=== PATIENT | male | born 1935 | race Caucasian/White ===

== ENCOUNTER 2018-04-26 09:54 | Emergency (ER) | payer MEDICARE, OTHER ==
[2018-04-26] MEDS ORDERED: Sodium Chloride 0.9% 2.5 ML Syringe FLUSH PRN (10:03)
[2018-04-26] MEDS ORDERED: Sodium Chloride 0.9% 10 ML Syringe FLUSH PRN (10:03)
[2018-04-26] MEDS ORDERED: Sodium Chloride 0.9% 1,000 ML IV ONE (10:35)
--- NOTE | 2018-04-26 11:32 | EDM.PDOC ---
ED HPI GENERAL MEDICAL PROBLEM - General Chief Complaint: Genitourinary Problem Stated Complaint: WEAKNESS Time Seen by Provider: 04/26/18 10:21 Source of Information: Reports: Patient History Limitations: Reports: No Limitations - History of Present Illness INITIAL COMMENTS - FREE TEXT/NARRATIVE: History of present illness: []Patient had 6 days of abdominal pain, rectal and urethral pain with urinary incontinence and vomiting. Patient states he was supposed to see Dr. Tomlin today but decided to come by ambulance to the ER for evaluation due to the severity of symptoms. Review of systems: As per history of present illness and below otherwise all systems reviewed and negative. Past medical history: As per history of present illness and as reviewed below otherwise noncontributory. Surgical history: As per history of present illness and as reviewed below otherwise noncontributory. Social history: No reported history of drug or alcohol abuse. Family history: As per history of present illness and as reviewed below otherwise noncontributory. Physical exam: General: Well developed, well nourished in NAD HEENT: Atraumatic, normocephalic, pupils reactive, negative for conjunctival pallor or scleral icterus, mucous membranes moist, throat clear, neck supple, nontender, trachea midline. Lungs: Clear to auscultation, breath sounds equal bilaterally, chest nontender. Heart: S1S2, regular, negative for clicks, rubs, or JVD. Abdomen: NABS, firm mass lower left abdomen, visibly distended and under to palpation.. Negative for masses or hepatosplenomegaly. Negative for costovertebral tenderness. Pelvis: Stable nontender. Genitourinary: Deferred. Rectal: Deferred. Extremities: Atraumatic, negative for cords or calf pain. Neurovascular unremarkable. Neuro: Awake, alert, oriented. Cranial nerves II through XII unremarkable. Cerebellum unremarkable. Motor and sensory unremarkable throughout. Exam nonfocal. Skin:warm and dry Diagnostics: CBC, chemistry, UA, CT abdomen pelvis showing urinary bladder outlet obstruction Therapeutics: De Leon catheter with resolution of firm abdominal mass and tenderness ED Course: 12:05- consult to Dr. Tomlin he would like this patient to go directly to his office at 1 PM so he can do an ultrasound in the office. Impression: Bladder outlet obstruction, De Leon placement Prescriptions: None Plan: Follow-up with Dr. Tomlin today at 1 PM. Definitive disposition and diagnosis as appropriate pending reevaluation and review of above. abdominal pain Pain Score (Numeric/FACES): 5 - Related Data Allergies Allergy/AdvReac Type Severity Reaction Status Date / Time No Known Allergies Allergy Verified 04/26/18 09:59 Home Meds: Home Meds . [No Known Home Meds] 04/26/18 [History] Past Medical History - Infectious Disease History Infectious Disease History: Reports: Chicken Pox - Past Surgical History Male Surgical History: Reports: Other (See Below) 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 Social & Family History - Family History Family Medical History: Noncontributory - Tobacco Use Smoking Status *Q: Never Smoker Second Hand Smoke Exposure: Yes - Caffeine Use Caffeine Use: Reports: Coffee, Soda, Tea - Alcohol Use Days Per Week of Alcohol Use: 5 Number of Drinks Per Day: 1 Total Drinks Per Week: 5 - Recreational Drug Use Recreational Drug Use: No ED ROS GENERAL - Review of Systems Review Of Systems: ROS reveals no pertinent complaints other than HPI. ED EXAM, RENAL/ - Physical Exam Exam: See Below (See history of present illness) Course - Vital Signs Last Recorded V/S: Last Vital Signs Temp 97.1 F 04/26/18 09:55 Pulse 84 04/26/18 11:00 Resp 18 04/26/18 11:00 BP 151/82 H 04/26/18 11:00 Pulse Ox 98 04/26/18 11:00 - Orders/Labs/Meds Orders: Active Orders 24 hr Category Date Time Status De Leon Catheter Insertion [Insert Urinary Catheter] [OM. Care 04/26/18 10:15 Ordered PC] Q24H Urinary Catheter Assessment [RC] ASDIRECTED Care 04/26/18 10:09 Active CULTURE URINE [RM] Routine Lab 04/26/18 10:15 Received Sodium Chloride 0.9% [Saline Flush] Med 04/26/18 10:03 Active 10 ml FLUSH ASDIRECTED PRN Sodium Chloride 0.9% [Saline Flush] Med 04/26/18 10:03 Active 2.5 ml FLUSH ASDIRECTED PRN Saline Lock Insert [OM.PC] Stat Oth 04/26/18 10:03 Ordered Medication Orders Sodium Chloride (Saline Flush) 10 ml FLUSH ASDIRECTED PRN PRN Reason: Keep Vein Open Last Admin: 04/26/18 10:59 Dose: 10 ml Sodium Chloride (Saline Flush) 2.5 ml FLUSH ASDIRECTED PRN PRN Reason: Keep Vein Open Last Admin: 04/26/18 10:59 Dose: 2.5 ml Labs: Laboratory Tests 04/26/18 04/26/18 04/26/18 Range/Units 10:05 10:05 10:15 WBC 11.29 H (4.0-11.0) K/uL RBC 4.92 (4.50-5.90) M/uL Hgb 16.1 (13.0-17.0) g/dL Hct 47.0 (38.0-50.0) % MCV 95.5 (80.0-98.0) fL MCH 32.7 H (27.0-32.0) pg MCHC 34.3 (31.0-37.0) g/dL RDW Std Deviation 42.8 (28.0-62.0) fl RDW Coeff of Bhanu 12 (11.0-15.0) % Plt Count 150 (150-400) K/uL MPV 10.50 (7.40-12.00) fL Neut % (Auto) 80.7 H (48.0-80.0) % Lymph % (Auto) 8.1 L (16.0-40.0) % Ross % (Auto) 10.9 (0.0-15.0) % Eos % (Auto) 0.1 (0.0-7.0) % Baso % (Auto) 0.2 (0.0-1.5) % Neut # (Auto) 9.1 H (1.4-5.7) K/uL Lymph # (Auto) 0.9 (0.6-2.4) K/uL Ross # (Auto) 1.2 H (0.0-0.8) K/uL Eos # (Auto) 0.0 (0.0-0.7) K/uL Baso # (Auto) 0.0 (0.0-0.1) K/uL Nucleated RBC % 0.0 /100WBC Nucleated RBCs # 0 K/uL Sodium 139 (136-148) mmol/L Potassium 4.3 (3.5-5.1) mmol/L Chloride 104 (98-107) mmol/L Carbon Dioxide 18.1 L (21.0-32.0) mmol/L BUN 52 H (7.0-18.0) mg/dL Creatinine 3.1 H (0.8-1.3) mg/dL Est Cr Clr Drug Dosing 18.08 mL/min Estimated GFR (MDRD) 19.4 ml/min Glucose 134 H (74-106) mg/dL Calcium 9.7 (8.5-10.1) mg/dL Total Bilirubin 0.8 (0.2-1.0) mg/dL AST 19 (15-37) IU/L ALT 21 (14-63) IU/L Alkaline Phosphatase 83 (46-116) U/L Total Protein 7.3 (6.4-8.2) g/dL Albumin 2.9 L (3.4-5.0) g/dL Globulin 4.4 H (2.6-4.0) g/dL Albumin/Globulin Ratio 0.7 L (0.9-1.6) Urine Color YELLOW Urine Appearance CLEAR Urine pH 5.5 (5.0-8.0) Ur Specific Carmen 1.025 (1.001-1.035) Urine Protein NEGATIVE (NEGATIVE) mg/dL Urine Glucose (UA) NEGATIVE (NEGATIVE) mg/dL Urine Ketones NEGATIVE (NEGATIVE) mg/dL Urine Occult Blood LARGE H (NEGATIVE) Urine Nitrite NEGATIVE (NEGATIVE) Urine Bilirubin NEGATIVE (NEGATIVE) Urine Urobilinogen 0.2 (<2.0) EU/dL Ur Leukocyte Esterase NEGATIVE (NEGATIVE) Urine RBC 15-20 (0-2/HPF) Urine WBC 3-5 (0-5/HPF) Ur Epithelial Cells FEW (NONE-FEW) Urine Bacteria FEW (NEGATIVE) Meds: Medications Generic Name Dose Route Start Last Admin Trade Name Freq PRN Reason Stop Dose Admin Sodium Chloride 10 ml 04/26/18 10:03 04/26/18 10:59 Saline Flush FLUSH 10 ml ASDIRECTED PRN Administration Keep Vein Open Sodium Chloride 2.5 ml 04/26/18 10:03 04/26/18 10:59 Saline Flush FLUSH 2.5 ml ASDIRECTED PRN Administration Keep Vein Open Discontinued Medications Generic Name Dose Route Start Last Admin Trade Name Freq PRN Reason Stop Dose Admin Sodium Chloride 1,000 mls @ 999 mls/hr 04/26/18 10:35 04/26/18 10:59 Normal Saline IV 04/26/18 11:35 999 mls/hr .Bolus ONE Administration Departure - Departure Time of Disposition: 12:06 Disposition: Home, Self-Care 01 Condition: Good Clinical Impression: Enlarged prostate with urinary retention - Discharge Information *PRESCRIPTION DRUG MONITORING PROGRAM REVIEWED*: No *COPY OF PRESCRIPTION DRUG MONITORING REPORT IN PATIENT CANDELARIA: No Referrals: PCP,None [Primary Care Provider] - Forms: ED Department Discharge Additional Instructions: The following information is given to patients seen in the emergency department who are being discharged to home. This information is to outline your options for follow-up care. We provide all patients seen in our emergency department with a follow-up referral. The need for follow-up, as well as the timing and circumstances, are variable depending upon the specifics of your emergency department visit. If you don't have a primary care physician on staff, we will provide you with a referral. We always advise you to contact your personal physician following an emergency department visit to inform them of the circumstance of the visit and for follow-up with them and/or the need for any referrals to a consulting specialist. The emergency department will also refer you to a specialist when appropriate. This referral assures that you have the opportunity for follow-up care with a specialist. All of these measure are taken in an effort to provide you with optimal care, which includes your follow-up. Under all circumstances we always encourage you to contact your private physician who remains a resource for coordinating your care. When calling for follow-up care, please make the office aware that this follow-up is from your recent emergency room visit. If for any reason you are refused follow-up, please contact the [facility] Emergency Department at and asked to speak to the emergency department charge nurse. Follow-up with Dr. Tomlin at 1 PM today return to ER if symptoms worsen or change. [facility] Specialty Care - Urology [address] [place] [id number] - My Orders Last 24 Hours: My Active Orders 04/26/18 10:03 Sodium Chloride 0.9% [Saline Flush] 10 ml FLUSH ASDIRECTED PRN Sodium Chloride 0.9% [Saline Flush] 2.5 ml FLUSH ASDIRECTED PRN Saline Lock Insert [OM.PC] Stat 04/26/18 10:09 Urinary Catheter Assessment [RC] ASDIRECTED 04/26/18 10:15 De Leon Catheter Insertion [Insert Urinary Catheter] [OM.PC] Q24H CULTURE URINE [RM] Routine - Assessment/Plan Last 24 Hours: My Active Orders 04/26/18 10:03 Sodium Chloride 0.9% [Saline Flush] 10 ml FLUSH ASDIRECTED PRN Sodium Chloride 0.9% [Saline Flush] 2.5 ml FLUSH ASDIRECTED PRN Saline Lock Insert [OM.PC] Stat 04/26/18 10:09 Urinary Catheter Assessment [RC] ASDIRECTED 04/26/18 10:15 De Leon Catheter Insertion [Insert Urinary Catheter] [OM.PC] Q24H CULTURE URINE [RM] Routine
--- NOTE | 2018-04-26 11:51 | CT ---
CT of the abdomen and pelvis without contrast. HISTORY: Pain TECHNIQUE: Axial CT images were obtained of the abdomen and pelvis without contrast. Coronal and sagittal reconstructions obtained. FINDINGS: The lung bases are clear, no pleural effusion. Mild bibasilar atelectasis. There are a few very tiny nodules within the lung bases. Mild coronary artery calcifications. Right hepatic lobe cyst noted. Spleen, adrenal glands, and pancreas appear unremarkable for noncontrast examination. Cholelithiasis without evidence of cholecystitis. There is no bulky retroperitoneal lymphadenopathy. No abdominal ascites. Nonobstructing nephrolithiasis noted bilaterally. Mild prominence of the renal collecting systems bilaterally without evidence of obstruction. The prostate is severely enlarged. There is a De Leon catheter within the urinary bladder which is otherwise decompressed. The large and small bowel are normal in caliber without evidence of obstruction. Diverticulosis without evidence of diverticulitis. There is no bulky pelvic lymphadenopathy. No free fluid. No free air. The urinary bladder appears normal. The visualized osseous structures appear normal. IMPRESSION: 1. Severe prostatomegaly with minimal hydronephrosis bilaterally suggesting bladder outlet obstruction. 2. Cholelithiasis. 3. Diverticulosis without evidence of diverticulitis. 4. Nonobstructing nephrolithiasis.
== END 2018-04-26 12:15 | disposition home or self-care (01) ==
LOC: MW.ED 09:54
DX: N40.1 Benign prostatic hyperplasia with lower urinary tract symptoms (principal); R33.8 Other retention of urine; Z77.22 Contact with and (suspected) exposure to environmental tobacco smoke (acute) (chronic)
CPT/HCPCS: 36415; 51702; 74176; 80053; 81001; 85025; 87086; 96360; 99284; J7040

== ENCOUNTER 2018-06-01 14:10 | Inpatient (IN) | payer MEDICARE, OTHER ==
[~2018-06-01 14:10] MED LIST: Ciprofloxacin in D5W 400 MG in Premix Bag 1 BAG IV SCH; ceFAZolin 1 GM in Premix Bag 1 BAG IV SCH
[2018-06-01] MEDS: ceFAZolin 1 GM in Premix Bag 1 BAG IV SCH ×2 (16:20→20:49)
[2018-06-01] MEDS: Acetaminophen/HYDROcodone 325-5 MG Tab PO PRN (23:35)
[2018-06-02] MEDS ORDERED: Lactated Ringers 1,000 ML IV SCH (00:01)
[2018-06-02] MEDS: ceFAZolin 1 GM in Premix Bag 1 BAG IV SCH ×4 (03:53→20:45)
[2018-06-02] MEDS ORDERED: Midazolam 1 MG/ML 2 ML SDV ONE (11:51)
[2018-06-02] MEDS ORDERED: Propofol 200 MG/20 ML SDV ONE ×2 (11:51→13:10)
--- NOTE | 2018-06-02 11:56 | PCM.PREANE ---
Preanesthetic Assessment - Anesthesia/Transfusion/Family Hx Anesthesia History: Prior Anesthesia Without Reaction (testicle removed, T+A : [place] 60 years ago under "ether' WITHOUT PROBLEMS) Family History of Anesthesia Reaction: No Transfusion History: No Prior Transfusion(s) - Review of Systems General: No Symptoms Pulmonary: No Symptoms Cardiovascular: No Symptoms Gastrointestinal: No Symptoms Neurological: No Symptoms Other: Reports: None - Physical Assessment NPO Status Date: 06/01/18 O2 Sat by Pulse Oximetry: 98 Respiratory Rate: 16 Vital Signs: Last Vital Signs Temp 97.9 F 06/02/18 07:00 Pulse 67 06/02/18 07:00 Resp 16 06/02/18 07:00 BP 119/69 06/02/18 07:00 Pulse Ox 98 06/02/18 07:00 Height: 5 ft 8 in Weight: 73.301 kg ASA Class: 2 Mental Status: Alert & Oriented x3 Airway Class: Mallampati = 2 Dentition: Reports: Edentulous (upper) ROM/Head Extension: Full Lungs: Clear to Auscultation, Normal Respiratory Effort Cardiovascular: Regular Rate, Regular Rhythm - Lab Values: Laboratory Last Values POC Glucose 162 mg/dL (60-110) H 06/01/18 16:50 - Allergies Allergies/Adverse Reactions: Allergies Allergy/AdvReac Type Severity Reaction Status Date / Time No Known Allergies Allergy Verified 05/08/18 14:39 - Anesthesia Plan Pre-Op Medication Ordered: None (PLAN: spinal with sedation, no fentanyl intraop or post op) - Acknowledgements Anesthesia Type Planned: Spinal Pt an Appropriate Candidate for the Planned Anesthesia: Yes Alternatives and Risks of Anesthesia Discussed w Pt/Guardian: Yes Pt/Guardian Understands and Agrees with Anesthesia Plan: Yes PreAnesthesia Questionnaire HEENT History: Reports: Impaired Vision Cardiovascular History: Reports: None Respiratory History: Reports: None Gastrointestinal History: Reports: None Genitourinary History: Reports: BPH, Retention, Urinary Musculoskeletal History: Reports: None Neurological History: Reports: None Psychiatric History: Reports: None Endocrine/Metabolic History: Reports: None Hematologic History: Reports: None Immunologic History: Reports: None Oncologic (Cancer) History: Reports: None Dermatologic History: Reports: None - Infectious Disease History Infectious Disease History: Reports: Chicken Pox, Measles - Past Surgical History Head Surgeries/Procedures: Reports: None HEENT Surgical History: Reports: None Male Surgical History: Reports: Other (See Below) 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 Dermatological Surgical History: Reports: None - SUBSTANCE USE Smoking Status *Q: Never Smoker Recreational Drug Use History: No - HOME MEDS Home Medications: Home Meds . [No Known Home Meds] 04/26/18 [History] - CURRENT (IN HOUSE) MEDS Current Meds: Current Medications Hydrocodone Bitart/Acetaminophen (Buckner 325-5 Mg) 1 - 2 tab PO Q4H PRN PRN Reason: Pain Last Admin: 06/01/18 23:35 Dose: 1 tab Lactated Ringer's (Ringers, Lactated) 1,000 mls @ 100 mls/hr IV ASDIRECTED SHEA Last Admin: 06/02/18 00:34 Dose: 100 mls/hr Cefazolin Sodium/Dextrose 1 gm (/ Premix) 50 mls @ 100 mls/hr IV Q6H [facility] Last Admin: 06/02/18 09:24 Dose: 100 mls/hr Tobramycin 120 mg/ Sodium (Chloride) 103 mls @ 103 mls/hr IV Q12H [facility] Last Admin: 06/02/18 04:31 Dose: 103 mls/hr Discontinued Medications Tobramycin 120 mg/ Sodium (Chloride) 103 mls @ 103 mls/hr IV Q12H [facility] Last Admin: 06/01/18 20:48 Dose: Not Given Cefazolin Sodium/Dextrose 1 gm (/ Premix) 50 mls @ 100 mls/hr IV Q6H [facility] Last Admin: 06/01/18 20:48 Dose: Not Given Propofol (Diprivan 20 Ml) Confirm Administered Dose 200 mg .ROUTE .STK-MED ONE Stop: 06/02/18 11:52
[2018-06-02] MEDS ORDERED: ePHEDrine 50 MG/ML SDV ONE (12:58)
[2018-06-02] MEDS ORDERED: Glycopyrrolate 0.2 MG/ML SDV ONE (13:06)
[2018-06-02] MEDS ORDERED: Belladonna Alkaloids/Opium 16.2-30 MG Supp RECTAL PRN (15:28)
--- NOTE | 2018-06-02 15:58 | PCM.POSTAN ---
POST ANESTHESIA ASSESSMENT - MENTAL STATUS Mental Status: Alert, Oriented - RESPIRATORY Respiratory Status: Respiratory Rate WNL, Airway Patent, O2 Saturation Stable - CARDIOVASCULAR CV Status: Pulse Rate WNL, Blood Pressure Stable - GASTROINTESTINAL GI Status: No Symptoms - POST OP HYDRATION Hydration Status: Adequate & Stable
--- NOTE | 2018-06-02 17:57 | OR ---
SURGEON: Susu Tomlin M.D. DATE OF PROCEDURE: 06/02/2018 PREOPERATIVE DIAGNOSES: Benign prostatic hypertrophy and urinary retention, status post transurethral resection of the prostate approximately four weeks ago. POSTOPERATIVE DIAGNOSES: Benign prostatic hypertrophy and urinary retention, status post transurethral resection of the prostate approximately four weeks ago. OPERATION: Second-stage TURP. DESCRIPTION OF PROCEDURE: The patient was given spinal anesthesia, placed in dorsal lithotomy position, prepped and draped in sterile drapes. The 28-Iraqi resectoscope was introduced into the bladder without difficulty. The resection was done in the usual manner starting with the floor going on laterally and anteriorly. At the end of the resection, all prostatic chips were removed. Both ureter orifices were intact. The area of the external sphincter was intact. A 22 three-way De Leon catheter with 8 mL in the balloon was left in the bladder connected to TUR drip. The patient tolerated the procedure well, left the room in good condition. JONN / ILYA /[id number]
[2018-06-02] MEDS: D5 1/2 NS w/ 20 mEq/L KCl 1,000 ML IV SCH (18:16)
[2018-06-02] MEDS: Docusate Sodium 100 MG Cap PO SCH (20:43)
[2018-06-02] MEDS: Acetaminophen/HYDROcodone 325-5 MG Tab PO PRN (20:43)
[2018-06-02] MEDS: Bacitracin Oint 28.35 GM Tube TOP SCH (22:15)
[2018-06-03] MEDS ORDERED: Benzocaine/Cetylpyridinium/Menthol Lozenge MUCMEM PRN (00:10)
[2018-06-03] MEDS: ceFAZolin 1 GM in Premix Bag 1 BAG IV SCH ×4 (02:44→21:07)
[2018-06-03] MEDS: Bacitracin Oint 28.35 GM Tube TOP SCH ×3 (06:37→21:07)
[2018-06-03] MEDS: D5 1/2 NS w/ 20 mEq/L KCl 1,000 ML IV SCH (08:10)
--- NOTE | 2018-06-03 08:25 | PCM48HPAN ---
Post Anesthesia Note - EVALUATION WITHIN 48HRS OF ANESTHETIC Vital Signs in Normal Range: Yes Patient Participated in Evaluation: Yes Respiratory Function Stable: Yes Airway Patent: Yes Cardiovascular Function Stable: Yes Hydration Status Stable: Yes Pain Control Satisfactory: Yes Nausea and Vomiting Control Satisfactory: Yes Mental Status Recovered: Yes Resp Rate: 16
[2018-06-03] MEDS: Docusate Sodium 100 MG Cap PO SCH ×2 (09:42→21:04)
[2018-06-03] MEDS ORDERED: Ondansetron 4 MG/2 ML SDV IVPUSH PRN (11:37)
[2018-06-04] MEDS: ceFAZolin 1 GM in Premix Bag 1 BAG IV SCH ×2 (03:42→10:04)
[2018-06-04] MEDS: Bacitracin Oint 28.35 GM Tube TOP SCH ×3 (06:12→21:15)
[2018-06-04] MEDS: Docusate Sodium 100 MG Cap PO SCH ×2 (08:12→20:38)
[2018-06-05] MEDS: Bacitracin Oint 28.35 GM Tube TOP SCH (06:34)
[2018-06-05] MEDS: Docusate Sodium 100 MG Cap PO SCH (09:13)
--- NOTE | 2018-06-05 13:06 | DISCH ---
DATE OF DISCHARGE: 06/05/2018 PRIMARY CARE PHYSICIAN: Susu Tomlin M.D. Rod is an 82-year-old. He was still in your attention 3 weeks following a TURP for a 4+ prostate that measured over 100 mL on ultrasound and that is for the adenoma only. His first TURP removed 55 g of prostate tissue, and that was not enough to get him to void, so he was readmitted to have his second TURP, which he had done on the of this month. Postoperatively, he did reasonably well. The catheter was removed on the second postoperative day. However, the urine was still darker than expected and I kept him in overnight. He was then discharged on 06/05/2018. At the time of discharge, his vital signs are normal. He is passing his urine without difficulty. The urine is pink. He is sent home on Macrobid 100 mg twice a day for the next 10 days and Colace, which he has at home. Pathology is still pending. He is to come back as needed. JONN / ILYA /[id number]
--- NOTE | 2018-07-03 16:29 | PCM.SN ---
- Free Text/Narrative Note: 06/03 Doing well 06/04 doing well
== END 2018-06-05 11:30 | disposition home or self-care (01) | DRG 714 ==
LOC: MW.SDS 14:10 → MW.MS 14:11 → MW.SDS 14:12 → MW.MS 14:12
PROVIDERS: ADMIT Urology; ATTEND Urology
PROC: 0VB08ZZ Excision of Prostate, Via Natural or Artificial Opening Endoscopic (ICD-10-PCS; principal; 2018-06-02)
PROC: 30233K1 Transfusion of Nonautologous Frozen Plasma into Peripheral Vein, Percutaneous Approach (ICD-10-PCS; 2018-06-02)
PROC: 30233N1 Transfusion of Nonautologous Red Blood Cells into Peripheral Vein, Percutaneous Approach (ICD-10-PCS; 2018-06-02)
DX: N40.1 Benign prostatic hyperplasia with lower urinary tract symptoms (principal); R33.8 Other retention of urine; H54.7 Unspecified visual loss
CPT/HCPCS: 00914; 36415; 36430; 82962; 84132; 84295; 85018; 85025; 85027; 85610; 85730; 88305; A9270-GY; J0690; J2250; J2704; J3260; J3480; J3490; J7030; J7120; P9016; P9017

== ENCOUNTER 2018-06-12 17:50 | Emergency (ER) | payer MEDICARE, OTHER ==
--- NOTE | 2018-06-12 18:10 | EDM.PDOC ---
ED HPI GENERAL MEDICAL PROBLEM - General Chief Complaint: Lower Extremity Injury/Pain Stated Complaint: HURT L FOOT Time Seen by Provider: 06/12/18 18:00 Source of Information: Reports: Patient History Limitations: Reports: No Limitations - History of Present Illness INITIAL COMMENTS - FREE TEXT/NARRATIVE: HISTORY AND PHYSICAL: History of present illness: Patient is an 82-year-old male who presents to the ED today after injuring his left foot today on the ice getting out of his vehicle. Patient states when he fell he twisted his ankle and landed on his buttocks. Patient states he did not hit his head or lose consciousness. Patient denies any palpitations leading to this event. Patient states he was walking to his pickup, had opened the door and slipped and twisted his left foot. He states he has worked on his foot all day and has been weightbearing. He states the pain has become intolerable and he rates it a 9 out of 10 when he goes to walk. Patient denies any other area of injury that is causing him any pain. Patient denies shortness of breath, difficulties breathing, palpitations, chest pain, abdominal pain, diaphoresis, cough, burning with urination, change in bowel habits, or all other GI, , cardiovascular, or respiratory concerns. Patient does have a history of BPH but denies any other health history. Review of systems: As per history of present illness and below otherwise all systems reviewed and negative. Past medical history: As per history of present illness and as reviewed below otherwise noncontributory. Surgical history: As per history of present illness and as reviewed below otherwise noncontributory. Social history: See social history for further information Family history: As per history of present illness and as reviewed below otherwise noncontributory. Physical exam: General: Patient is alert, oriented, and in no acute distress. He is lying comfortably on exam table. HEENT: Atraumatic, normocephalic, pupils equal and reactive bilaterally, negative for conjunctival pallor or scleral icterus, mucous membranes moist, TMs normal bilaterally, throat clear, neck supple, nontender, trachea midline. No drooling or trismus noted. No meningeal signs. No hot potato voice noted. Lungs: Clear to auscultation, breath sounds equal bilaterally, chest nontender. Heart: S1S2, regular rate and rhythm without overt murmur Abdomen: Soft, nondistended, nontender. Negative for masses or hepatosplenomegaly. Negative for costovertebral tenderness. Pelvis: Stable nontender. Genitourinary: Deferred. Rectal: Deferred. Skin: Intact, warm, dry. No lesions or rashes noted. Extremities: Patient does have full range of motion/strength of bilateral hips and knees. His left ankle is edematous and range of motion is limited due to pain. Right ankle has full range of motion and strength without any deficit. Patient is able to move all toes bilaterally. Capillary refill less than 2 seconds. Dorsalis pedis and posterior tibial pulses are grossly intact. Patient does help palpation to generalized left foot. Negative for cords or calf pain. Neurovascular unremarkable. Neuro: Awake, alert, oriented. Cranial nerves II through XII unremarkable. Cerebellum unremarkable. Motor and sensory unremarkable throughout. Exam nonfocal. Notes: Patient did have a TURP on 05/08/[address] Adams for BPH and urinary retention. States he has had no concerns post-operative regarding this procedure. X-ray shows a nondisplaced oblique fracture of the lateral malleolus. X-ray versus nondisplaced fracture of the medial malleolus. Mild soft tissue edema is noted surrounding the ankle. Dr Galicia at [facility] was consulted on this patient as we do not have any orthopedics available. He states that this patient will do well with a posterior splint and given crutches. Patient should follow-up in the next 1-2 days as this fracture may require and likely will require surgery. Patient was made aware of this. Our orthopedic provider is out of 06/19/18. Dr. Galicia states he may call their office tomorrow to set up a follow-up appointment and they'll squeeze him in to be evaluated. Supportive care measures were reviewed and discussed. Voices understanding and is agreeable to plan of care. Denies any further questions or concerns at this time. Diagnostics: EKG, Foot x-ray Therapeutics: Splint and Crutches Prescription: Clio (#30) Impression: Transverse nondisplaced fracture of the medial malleolus, left Nondisplaced oblique fracture lateral malleolus, left Plan: 1. Please keep the splint on and use your crutches as directed. Continue to be non-weightbearing. 2. You can alternate ibuprofen and Tylenol as needed for pain and discomfort. Clio for moderate to severe pain. This medication may cause drowsiness so do not take while driving or needing to be functioning outside of the house. 3. You can apply ice to the area 10 minutes on, 10 minutes off to prevent swelling. 4. Follow-up with orthopedics as discussed. Please call tomorrow to set up a follow-up appointment as he will need to be reevaluated in the next 1-2 days and will likely require surgery after that reevaluation. Dr. Mcgill is out of the office until 06/19/18. Dr. Galicia at [facility] is aware of her case and states that they can fit to into their schedule to be reevaluated this week. 5. Return to the ED as needed and as discussed. Definitive disposition and diagnosis as appropriate pending reevaluation and review of above. Onset: Today Left ankle pain Pain Score (Numeric/FACES): 1 - Related Data Allergies Allergy/AdvReac Type Severity Reaction Status Date / Time No Known Allergies Allergy Verified 06/12/18 18:05 Home Meds: Home Meds Nitrofurantoin Macrocrystal [Nitrofurantoin] 06/12/18 [History] Past Medical History HEENT History: Reports: Impaired Vision Cardiovascular History: Reports: None Respiratory History: Reports: None Gastrointestinal History: Reports: None Genitourinary History: Reports: BPH, Retention, Urinary Musculoskeletal History: Reports: None Neurological History: Reports: None Psychiatric History: Reports: None Endocrine/Metabolic History: Reports: None Hematologic History: Reports: None Immunologic History: Reports: None Oncologic (Cancer) History: Reports: None Dermatologic History: Reports: None - Infectious Disease History Infectious Disease History: Reports: Chicken Pox, Measles - Past Surgical History Head Surgeries/Procedures: Reports: None HEENT Surgical History: Reports: None Male Surgical History: Reports: Other (See Below) 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 Dermatological Surgical History: Reports: None Social & Family History - Family History Family Medical History: Noncontributory - Caffeine Use Caffeine Use: Reports: Coffee Review of Systems - Review of Systems Review Of Systems: ROS reveals no pertinent complaints other than HPI. ED EXAM, GENERAL - Physical Exam Exam: See Below (See dictation) Course - Vital Signs Last Recorded V/S: Last Vital Signs Temp 97.8 F 03/04/19 17:53 Pulse 87 06/12/18 17:53 Resp 16 06/12/18 17:53 BP 146/71 H 06/12/18 17:53 Pulse Ox 98 06/12/18 17:53 - Orders/Labs/Meds Orders: Active Orders 24 hr Category Date Time Status EKG Documentation Completion [RC] STAT Care 06/12/18 17:59 Active Ankle Min 3V Lt [CR] Stat Exams 06/12/18 18:11 Taken DME for Discharge [COMM] Stat Oth 06/12/18 19:29 Ordered Departure - Departure Time of Disposition: 19:25 Disposition: Home, Self-Care 01 Clinical Impression: Fracture of medial malleolus, left, closed Qualifiers: Encounter type: initial encounter Fracture alignment: nondisplaced Qualified Code(s): S82.55XA - Nondisplaced fracture of medial malleolus of left tibia, initial encounter for closed fracture - Discharge Information Referrals: PCP,None [Primary Care Provider] - Forms: ED Department Discharge Additional Instructions: The following information is given to patients seen in the emergency department who are being discharged to home. This information is to outline your options for follow-up care. We provide all patients seen in our emergency department with a follow-up referral. The need for follow-up, as well as the timing and circumstances, are variable depending upon the specifics of your emergency department visit. If you don't have a primary care physician on staff, we will provide you with a referral. We always advise you to contact your personal physician following an emergency department visit to inform them of the circumstance of the visit and for follow-up with them and/or the need for any referrals to a consulting specialist. The emergency department will also refer you to a specialist when appropriate. This referral assures that you have the opportunity for follow-up care with a specialist. All of these measure are taken in an effort to provide you with optimal care, which includes your follow-up. Under all circumstances we always encourage you to contact your private physician who remains a resource for coordinating your care. When calling for follow-up care, please make the office aware that this follow-up is from your recent emergency room visit. If for any reason you are refused follow-up, please contact the [facility] Emergency Department at and asked to speak to the emergency department charge nurse. [facility]: Dr Galicia (Orthopedics) [address] [place] [address] [facility] Specialty Care - Orthopedic Clinic Professional Building [address] [place] [address], [address] [place] [address] Plan: 1. Please keep the splint on and use your crutches as directed. Continue to be non-weightbearing. 2. You can alternate ibuprofen and Tylenol as needed for pain and discomfort. Clio for moderate to severe pain. This medication may cause drowsiness so do not take while driving or needing to be functioning outside of the house. 3. You can apply ice to the area 10 minutes on, 10 minutes off to prevent swelling. 4. Follow-up with orthopedics as discussed. Please call tomorrow to set up a follow-up appointment as he will need to be reevaluated in the next 1-2 days and will likely require surgery after that reevaluation. Dr. Mcgill is out of the office until 06/19/18. Dr. Galicia at [facility] in [place] is aware of her case and states that they can fit to into their schedule to be reevaluated this week. 5. Return to the ED as needed and as discussed. - My Orders Last 24 Hours: My Active Orders 06/12/18 18:11 Ankle Min 3V Lt [CR] Stat 06/12/18 19:29 DME for Discharge [COMM] Stat - Assessment/Plan Last 24 Hours: My Active Orders 06/12/18 18:11 Ankle Min 3V Lt [CR] Stat 06/12/18 19:29 DME for Discharge [COMM] Stat
--- NOTE | 2018-06-12 18:58 | CR ---
INDICATION: Foot pain from fall TECHNIQUE: Foot radiograph 3 views left COMPARISON: None FINDINGS: Bone: No acute fractures or aggressive bone lesions are identified. A large plantar calcaneal spur is noted. Joint: The visualized hindfoot, midfoot, and forefoot joints are unremarkable in appearance. No significant ankle effusion is seen. Soft tissue: Unremarkable. No radiopaque foreign bodies are seen. IMPRESSION: 1. No acute osseous injuries or abnormalities are noted. Dictated by: Weston Weaver MD @ 06/12/2018 18:56:51 (Electronically Signed)
--- NOTE | 2018-06-13 13:17 | CR ---
EXAM DATE: 06/12/18 PATIENT'S AGE: 82 Patient: ABDULAZIZ SURESH Facility: [facility] Site . Site : [id number] Study: XRay-Extremity [id number]/4/2019 6:46:12 PM Ordering Physician: Doctor Kilgore Final Report: INDICATION: Ankle pain from a fall TECHNIQUE: Ankle radiograph 3 views left COMPARISON: None FINDINGS: Bone: There is a nondisplaced oblique fracture lateral malleolus seen. A transverse, nondisplaced fracture of the medial malleolus noted. Joint: The ankle mortise joint and the visualized hindfoot joints are unremarkable in appearance. No significant ankle effusion is seen. Soft tissue: Mild soft tissue edema seen surrounding the ankle. No radiopaque foreign bodies are seen. IMPRESSION: 1. There is a nondisplaced oblique fracture lateral malleolus seen. A transverse , nondisplaced fracture of the medial malleolus noted. Dictated by Weston Weaver MD @ 06/12/2018 6:57:40 PM Dictated by: Weston Weaver MD @ 06/12/2018 18:57:45 Signed by: Weston Weaver MD @06/12/2018 6:57:45 PM (Electronic Signature) Report Signed by Proxy. ROM
== END 2018-06-12 19:55 | disposition home or self-care (01) ==
LOC: MW.ED 17:50
DX: S82.845A Nondisplaced bimalleolar fracture of left lower leg, initial encounter for closed fracture (principal); X50.1XXA Overexertion from prolonged static or awkward postures, initial encounter
CPT/HCPCS: 29515; 73610-26-LT; 73610-LT; 73620-26-LT; 73620-LT; 93005; 99283; 99284-25

== ENCOUNTER 2020-10-21 19:33 | Emergency (ER) | payer OTHER, MEDICARE ==
--- NOTE | 2020-10-21 20:04 | PCM.EKG ---
#1 Interpretation EKG Date: 10/21/20 Time: 20:00 Rhythm: NSR Rate (Beats/Min): 71 [place]: Normal P-Wave: Present QRS: Normal ST-T: Normal QT: Normal Comparison: No Change (06/2018) EKG Interpretation Comments: Sinus Rhythm
[2020-10-21 20:56] LABS: BLOOD UREA NITROGEN,BUN 15 mg/dL (7.0-18.0); CARBON DIOXIDE,CO2 28.6 mmol/L (21.0-32.0); CHLORIDE,CL 105 mmol/L (98-107); GLUCOSE RANDOM 103 mg/dL (74-106); POTASSIUM,K 4.4 mmol/L (3.5-5.1); SODIUM,NA 143 mmol/L (136-148)
--- NOTE | 2020-10-21 21:17 | CR ---
HISTORY: Syncope. COMPARISON: None available FINDINGS: A portable erect AP view of the chest was obtained at 20 16 hours. The lungs are clear despite shallow inspiration. No focal or diffuse infiltrates are present. The heart is normal in size. The mediastinum is normal in appearance. There is prominent superior subluxation of both humeral heads indicating degeneration or disruption of the rotator cuff. 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 IMPRESSION: No active disease seen in the chest. Degenerative changes in the shoulders as described above. Dictated by Nolan Guerra MD @ 10/21/2020 9:15:[address] Nolan Guerra @ Oct 21 2020 9:15PM
--- NOTE | 2020-10-21 21:50 | CT ---
INDICATION: Fall with mid thoracic spine tenderness TECHNIQUE: CT thoracic spine without contrast. COMPARISON: None FINDINGS: Vertebral alignment: Alignment is normal. Vertebrae: There are no fractures or suspicious bony lesions. Discs and facet joints: Disc spaces and facets are within normal limits. Extraspinal findings: Coronary artery calcifications. Cholelithiasis. IMPRESSION: No acute thoracic spine fracture or subluxation. Coronary artery disease. Cholelithiasis. Please note that all CT scans at this facility use dose modulation, iterative reconstruction, and/or weight-based dosing when appropriate to reduce radiation dose to as low as reasonably achievable. Dictated by Yamile Mcmanus MD @ 10/21/2020 9:49:[address] Yamile Mcmanus @ Oct 21 2020 9:49PM
--- NOTE | 2020-10-21 22:27 | EDM.PDOC ---
ED HPI GENERAL MEDICAL PROBLEM - General Chief Complaint: Back Pain or Injury Stated Complaint: FALL Time Seen by Provider: 10/21/20 19:33 - History of Present Illness INITIAL COMMENTS - FREE TEXT/NARRATIVE: CHIEF COMPLAINT(S): Fall HISTORY OF PRESENT ILLNESS: This is a 84-year-old man without any past medical history who comes to the emergency department with a chief complaint of fall. The patient states that approximately 3 hours prior to arrival while he was at the dental office he blacked out and the next thing he remembers is that he was on the ground. He states that he is currently experiencing middle back pain in the upper part which he describes as cramping and sharp that is worse with movement. He rates it as 14 out of 10 with movement and 2 out of 10 currently. He states that it is located directly on the bone. He denies any numbness, tingling, weakness, trouble walking, speaking or swallowing. He denies any urinary incontinence or bowel incontinence. He states that "my rectum is tight right now." He denied any preceding chest pain, shortness of breath, recent travel, recent surgery or prior history of DVT or PE. He denies any abdominal pain, nausea or vomiting. He denies any extremity pain. REVIEW OF SYSTEMS: Constitutional: Denies fever, chills. Eyes: Denies eye pain Ears, Nose, Mouth, & Throat: Denies earache Cardiovascular: Denies chest pain Respiratory: Denies shortness of breath Gastrointestinal: Denies bowel incontinence, nausea, vomiting, diarrhea, hematochezia. Genitourinary: Denies hematuria, urinary incontinence skin:Denies a rash MSK: Positive for middle back pain with spasm Neurological: Denies blurred vision, numbness, tingling, weakness Psychiatric: Denies depression PAST MEDICAL HISTORY: As per history of present illness and as reviewed below otherwise noncontributory. SURGICAL HISTORY: As per history of present illness and as reviewed below otherwise noncontributory. SOCIAL HISTORY: As per history of present illness and as reviewed below otherwise noncontributory. FAMILY HISTORY: As per history of present illness and as reviewed below otherwise noncontributory. EXAMINATION OF ORGAN SYSTEMS/BODY AREAS: Constitutional: Blood pressure is 167/88, heart rate 74, respiratory rate 20 with an oxygen saturation 98% on room air. Temperature 36.8 GENERAL: The patient is well-nourished, well-developed, in no acute distress. HEAD, EARS, EYES, NOSE THROAT: Normocephalic, atraumatic. PERRL. EOM are intact. There was no facial bone tenderness. Ears were clear, no hemotympanum. Oropharynx is clear. No missing or chipped teeth. Neck was supple and nontender. RESPIRATORY: No tachypnea. Equal breath sounds are heard bilaterally. Lungs clear to auscultation. CARDIOVASCULAR: Regular rate and rhythm. Heart sounds were normal. There is no S3, S4, murmur, rub. There is no chest wall tenderness. No crepitus. Radial and dorsalis pedis pulses were palpable and equal bilaterally. ABDOMEN: The abdomen was soft, nondistended, and nontender to palpation. There was no guarding or rebound tenderness. Bowel sounds were present throughout the abdomen and normal. Pelvis was stable and not tender to rock. SPINE: There is no cervical or lumbar midline spinal tenderness. There is midline thoracic tenderness and perithoracic muscle tenderness. EXTREMITIES: Extremity examination revealed no deformity, localized swelling, contusions, or other abnormality. Patient is moving all 4 extremities equally. Distal pulses palpable in bilaterally. NEUROLOGICAL: Alert and oriented. On neurological examination [place] Coma Scale was 15. Facies were symmetrical. Strength was good in all extremities. SKIN: Appropriately warm to touch. No rashes, or pallor. No overt signs of trauma. MEDICAL DECISION MAKING AND COURSE IN THE ED WITH INTERPRETATION/REVIEW OF DIAGNOSTIC STUDIES: This is a 84-year-old man without any significant past medical history who presents to emergency department after a reported syncopal episode who is complaining of mid thoracic back pain and muscle spasm who is mildly hypertensive who overall appears well. Immediately upon entering the room, the patient is disrobed, and placed on continuous cardiac monitoring as well as pulse oximetry. Patient tells me their name displaying a patent airway, breath sounds are equal bilaterally, and patient has palpable pulses in all 4 extremities. The patient does not have any gross deformities, and does not have any gross deficit. Upon exposure no further lesions are seen. Palpation of the cervical, thoracic, and lumbar spine reveals midline thoracic tenderness. IV access is obtained, and trauma labs are sent. At this time given the reported syncopal episode we did obtain an EKG which did not reveal any acute signs of ischemia. environmental monitoring specialist at this time did reveal sinus rhythm and pulse oximetry with good waveform was 96 to 98% on room air. I did offer the patient pain medication including Toradol, Tylenol, Motrin, morphine however the patient did not want any at this time. I did discuss with him that I would like to obtain a cardiac work-up in addition to obtaining a chest x-ray and a thoracic spine CT to evaluate for any fracture. He was amenable to this plan. DDx: Thoracic spine fracture, muscle strain/spasm, ACS, PE, pneumothorax Laboratory: CBC is unremarkable. INR is normal. BMP is unremarkable. Magnesium is normal. Troponin is negative. The radiological images were viewed by myself along with reading the report from the radiologist. Chest x-ray does not reveal any acute cardiopulmonary process CT thoracic spine without contrast does not reveal any thoracic spine fracture or subluxation. There is coronary artery disease and cholelithiasis. Heart Score History: Highly Suspicious (2) ECG: Normal (0) Age:>65 (2) Risk Factors: No known risk factors (0) Initial Troponin: </= normal limit (0) Total Score: 4 Wells Criteria Clinical signs/symptoms of DVT: No (0) PE #1 Dx or equally likely: No (0) Heart Rate >100: No (0) Immobilization for 3 days or surgery in last month: No (0) Previously Dx PE or DVT: No (0) Hemoptysis: No (0) Malignancy w/ Tx within 6 months or palliative: No (0) Wells Score: 1 Using the heart score the patient is moderate to high risk for ACS. I did discuss with him at this time his imaging results. I did discuss the CAD and the cholelithiasis. I did discuss observation admission for the syncope and further work-up. The patient stated that he would rather go home. At this time I do believe the patient has the ability to make his own choice. He is currently symptom-free. However I did encourage the patient to follow-up with cardiology within 1 to 3 days. He is also follow-up with his primary care physician in 1 to 3 days. He was given treatment modalities for his back pain and was given strict return precautions regarding that. He was amenable to discharge and had no further questions. DISPOSITION: The patient was discharged home in stable condition. The patient will follow up with cardiology and primary care physician in 1 to 3 days PROCEDURES: Cardiac monitoring interpretation, pulse oximetry interpretation FINAL IMPRESSION(S)/DIAGNOSES: 1. Acute syncopal episode 2. Acute thoracic spine strain 3. Acute musculoskeletal spasm Critical Care Procedure Note Authorized and performed by: Juan Miguel Maher M.D. Critical Care Time: 35 minutes Due to a high probability of clinically significant, life threatening deterioration, the patient required my highest level of preparedness to intervene emergently and I personally spent this critical care time directly and personally managing the patient. This critical care time included obtaining a history, examining the patient, pulse oximetry; ordering and review of studies; arranging urgent treatment with development of a management plan; evaluation of a patients reponse to treatment; frequent assessment; and discussions with other providers. This critical care time was performed to assess and manage the high probability of imminent, life threatening deterioration that could result in multiorgan failure. It was exclusive of separate billable procedures and treating other patients. Please see MDM section and rest of the note for further information on patient assessment and treatment. Please see MDM section and rest of the note for further information on patient assessment and treatment. Juan Miguel Maher M.D. Middle Back Pain Score (Numeric/FACES): 10 - Related Data Allergies Allergy/AdvReac Type Severity Reaction Status Date / Time No Known Allergies Allergy Verified 10/21/20 19:35 Home Meds: Home Meds nitrofurantoin macrocrystaL [Nitrofurantoin] 06/12/18 [History] methocarbamoL [Methocarbamol] 1,000 mg PO QID #80 tablet 10/21/20 [Rx] Past Medical History HEENT History: Reports: Impaired Vision Cardiovascular History: Reports: None Respiratory History: Reports: None Gastrointestinal History: Reports: None Genitourinary History: Reports: BPH, Retention, Urinary Musculoskeletal History: Reports: None Neurological History: Reports: None Psychiatric History: Reports: None Endocrine/Metabolic History: Reports: None Hematologic History: Reports: None Immunologic History: Reports: None Oncologic (Cancer) History: Reports: None Dermatologic History: Reports: None - Infectious Disease History Infectious Disease History: Reports: Chicken Pox, Measles - Past Surgical History Head Surgeries/Procedures: Reports: None HEENT Surgical History: Reports: None Male Surgical History: Reports: Other (See Below) 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 Dermatological Surgical History: Reports: None Social & Family History - Family History Family Medical History: No Pertinent Family History - Tobacco Use Tobacco Use Status *Q: Never Tobacco User - Caffeine Use Caffeine Use: Reports: None - Recreational Drug Use Recreational Drug Use: No ED ROS GENERAL - Review of Systems Review Of Systems: See Below ED EXAM, GENERAL - Physical Exam Exam: See Below Course - Vital Signs Last Recorded V/S: Last Vital Signs Temp 36.8 C 10/21/20 19:36 Pulse 70 10/21/20 22:55 Resp 18 10/21/20 22:55 BP 186/83 H 10/21/20 22:55 Pulse Ox 97 10/21/20 22:55 - Orders/Labs/Meds Labs: Laboratory Tests 10/21/20 10/21/20 10/21/20 Range/Units 20:25 20:25 20:25 WBC 9.57 (4.0-11.0) K/uL RBC 4.76 (4.50-5.90) M/uL Hgb 16.1 (13.0-17.0) g/dL Hct 47.1 (38.0-50.0) % MCV 98.9 H (80.0-98.0) fL MCH 33.8 H (27.0-32.0) pg MCHC 34.2 (31.0-37.0) g/dL RDW Std Deviation 46.0 (28.0-62.0) fl RDW Coeff of Bhanu 13 (11.0-15.0) % Plt Count 160 (150-400) K/uL MPV 10.50 (7.40-12.00) fL Neut % (Auto) 73.7 (48.0-80.0) % Lymph % (Auto) 18.1 (16.0-40.0) % Humphreys % (Auto) 7.7 (0.0-15.0) % Eos % (Auto) 0.4 (0.0-7.0) % Baso % (Auto) 0.1 (0.0-1.5) % Neut # (Auto) 7.1 H (1.4-5.7) K/uL Lymph # (Auto) 1.7 (0.6-2.4) K/uL Humphreys # (Auto) 0.7 (0.0-0.8) K/uL Eos # (Auto) 0.0 (0.0-0.7) K/uL Baso # (Auto) 0.0 (0.0-0.1) K/uL Nucleated RBC % 0.0 /100WBC Nucleated RBCs # 0 K/uL INR 1.05 Sodium 143 (136-148) mmol/L Potassium 4.4 (3.5-5.1) mmol/L Chloride 105 (98-107) mmol/L Carbon Dioxide 28.6 (21.0-32.0) mmol/L BUN 15 (7.0-18.0) mg/dL Creatinine 1.0 (0.8-1.3) mg/dL Est Cr Clr Drug Dosing 54.15 mL/min Estimated GFR (MDRD) > 60.0 ml/min Glucose 103 (74-106) mg/dL Calcium 8.5 (8.5-10.1) mg/dL Magnesium 2.2 (1.8-2.4) mg/dL Troponin I < 0.050 (0.000-0.056) ng/mL Departure - Departure Time of Disposition: 22:26 Disposition: Home, Self-Care 01 Condition: Fair Clinical Impression: Syncope and collapse, Fall, Thoracic back pain, Muscle spasm, Muscle strain - Discharge Information *PRESCRIPTION DRUG MONITORING PROGRAM REVIEWED*: No *COPY OF PRESCRIPTION DRUG MONITORING REPORT IN PATIENT CANDELARIA: No Prescriptions: methocarbamoL [Methocarbamol] 1,000 mg PO QID #80 tablet Instructions: Muscle Cramps and Spasms, [id number], Acute Back Pain, Adult, Back Injury Prevention, [id number], Muscle Strain, [id number], Syncope Referrals: Stewart Rosario NP [Primary Care Provider] - Mi Oswald MD [Physician] - Forms: ED Department Discharge Additional Instructions: You were evaluated today on an emergent basis. At this time your CAT scan of your spine did not reveal any fractures. As discussed I do believe you are experiencing muscle spasm, muscle strain and likely a bone contusion. I recommend Tylenol and Motrin alternating in addition to heating and icing the area 20 minutes 4 times a day. I did provide you with a Robaxin prescription. If you have any worsening pain, urinate on yourself, defecating on yourself or you have any concerns you are welcome to return to the emergency department. In addition I did discuss with the observation admission or follow-up with cardiology for the syncopal episode that you had. I do recommend that she follow-up with cardiology within 1 to [address] you on the cardiac follow-up list. If you have any repeat passing out episodes, chest pain or shortness of breath. Please use: Tylenol 500-1000mg every 6 hours (DO NOT TAKE MORE THAN 4000mg in 1 day) Ibuprofen 400mg every 6 hours (Take with food as it can cause ulcers, GI upset) Example schedule: 8:00 AM (Tylenol 500-1000mg) 11:00 AM (Ibuprofen 400mg) 2:00 PM (Tylenol 500-1000mg) 5:00 PM (Ibuprofen 400mg) In addition to Tylenol and Motrin you may use over the counter creams such as Voltaren Cream or Lidocaine Cream (Lidoderm) as needed 4 times a day for symptomatic relief. Ice/Heat the area 20 minutes 4 times per day [facility] [address] [place] [address] [place] [address] The patient is informed of any results of their evaluation and diagnostic workup and all questions are answered. They are given discharge instructions and return precautions. The patient is stable for discharge. The patient states they understand and agree with the plan and that they will return if their symptoms get worse or if they have any new concerns. The following information is given to patients seen in the emergency department who are being discharged to home. This information is to outline your options for follow-up care. We provide all patients seen in our emergency department with a follow-up referral. The need for follow-up, as well as the timing and circumstances, are variable depending upon the specifics of your emergency department visit. If you don't have a primary care physician on staff, we will provide you with a referral. We always advise you to contact your personal physician following an emergency department visit to inform them of the circumstance of the visit and for follow-up with them and/or the need for any referrals to a consulting specialist. The emergency department will also refer you to a specialist when appropriate. This referral assures that you have the opportunity for follow-up care with a specialist. All of these measure are taken in an effort to provide you with optimal care, which includes your follow-up. Under all circumstances we always encourage you to contact your private physician who remains a resource for coordinating your care. When calling for follow-up care, please make the office aware that this follow-up is from your recent emergency room visit. If for any reason you are refused follow-up, please contact the [facility] Department at and asked to speak to the emergency department charge nurse. Sepsis Event Note (ED) - Evaluation Sepsis Screening Result: No Definite Risk
== END 2020-10-21 22:55 | disposition home or self-care (01) ==
LOC: MW.ED 19:33
DX: R55 Syncope and collapse (principal); S29.012A Strain of muscle and tendon of back wall of thorax, initial encounter; M62.830 Muscle spasm of back; W19.XXXA Unspecified fall, initial encounter
CPT/HCPCS: 36415; 71045; 71045-26; 72128; 72128-26; 80048; 83735; 84484; 85025; 85610; 93005; 99285-25; 99291

== ENCOUNTER 2022-09-14 11:41 | Emergency (ER) | payer OTHER, MEDICARE ==
[2022-09-14] MEDS ORDERED: Sodium Chloride 0.9% 2.5 ML Syringe FLUSH PRN (11:45)
[2022-09-14] MEDS ORDERED: Sodium Chloride 0.9% 10 ML Syringe FLUSH PRN (11:45)
[2022-09-14 12:08] LABS: BASOPHILS PERCENT AUTO 0.3 % (0.0-1.5); EOSINOPHILS ABSOLUTE AUTO 0.1 K/uL (0.0-0.7); EOSINOPHILS PERCENT AUTO 1.1 % (0.0-7.0); HEMATOCRIT 49.6 % (38.0-50.0); HEMOGLOBIN 16.8 g/dL (13.0-17.0); LYMPHOCYTES ABSOLUTE AUTO 1.5 K/uL (0.6-2.4); LYMPHOCYTES PERCENT AUTO 20.4 % (16.0-40.0); MEAN CORPUSCULAR HEMOGLOBIN 33.7 pg (27.0-32.0); MEAN CORPUSCULAR HGB CONC 33.9 g/dL (31.0-37.0); MEAN CORPUSCULAR VOLUME 99.4 fL (80.0-98.0); MONOCYTES ABSOLUTE AUTO 0.5 K/uL (0.0-0.8); MONOCYTES PERCENT AUTO 6.8 % (0.0-15.0); NEUTROPHILS ABSOLUTE AUTO 5.2 K/uL (1.4-5.7); NEUTROPHILS PERCENT AUTO 71.4 % (48.0-80.0); PLATELET COUNT,PLT 148 K/uL (150-400); RED BLOOD CELL COUNT 4.99 M/uL (4.50-5.90); WHITE BLOOD CELL COUNT,WBC 7.24 K/uL (4.0-11.0)
[2022-09-14 12:41] LABS: ALBUMIN 3.6 g/dL (3.4-5.0); BILIRUBIN TOTAL 1.3 mg/dL (0.2-1.0); CALCIUM 8.7 mg/dL (8.5-10.1); CARBON DIOXIDE,CO2 24.5 mmol/L (21.0-32.0); EST CRCL DRUG DOSING (CG) 54.01 mL/min; POTASSIUM,K 4.5 mmol/L (3.5-5.1); PROTEIN TOTAL,TP 7.1 g/dL (6.4-8.2)
[2022-09-14] MEDS ORDERED: Octyl 2-Cyanoacrylate 1 g/1 mL 1 APPLIC PEN TOP ONE (12:51)
[2022-09-14] MEDS ORDERED: Sodium Chloride 0.9% 1,000 ML IV ONE (15:35)
== END 2022-09-14 15:55 | disposition home or self-care (01) ==
LOC: MW.ED 11:41
DX: R55 Syncope and collapse (principal); S01.111A Laceration without foreign body of right eyelid and periocular area, initial encounter; Y92.89 Other specified places as the place of occurrence of the external cause; Y99.0 Civilian activity done for income or pay
CPT/HCPCS: 12014; 36415; 70450; 70486; 71045; 72125; 80053; 83735; 84484; 85025; 93005; 99285; A9270; J3490

== ENCOUNTER 2023-04-13 07:27 | Emergency (ER) | payer OTHER, MEDICARE ==
[2023-04-13] MEDS ORDERED: cefTRIAXone 1 GM in Sodium Chloride 0.9% 50 ML IV ONE (08:26)
[2023-04-13] MEDS ORDERED: Diphtheria,Pertussis(Acell),Tetanus Vaccine 0.5 ML Syringe IM ONE (09:16)
[2023-04-13] MEDS ORDERED: Octyl 2-Cyanoacrylate 1 g/1 mL 1 APPLIC PEN TOP ONE (10:43)
== END 2023-04-13 11:00 ==
LOC: MW.ED 07:27
DX: S66.891A Other injury of other specified muscles, fascia and tendons at wrist and hand level, right hand, initial encounter (principal); S62.501B Fracture of unspecified phalanx of right thumb, initial encounter for open fracture; Z23 Encounter for immunization; W10.1XXA Fall (on)(from) sidewalk curb, initial encounter
CPT/HCPCS: 70450; 70486; 71101; 72125; 73130; 90471; 90715; 96365; 99284; A9270; J0696; J3490

== ENCOUNTER 2024-07-25 13:24 | Observation (INO) | payer OTHER, MEDICARE ==
[2024-07-25] MEDS ORDERED: Sodium Chloride 0.9% 10 ML Syringe FLUSH PRN (13:38)
[2024-07-25] MEDS ORDERED: Sodium Chloride 0.9% 2.5 ML Syringe FLUSH PRN (13:38)
[2024-07-25 14:09] LABS: BASOPHILS ABSOLUTE AUTO 0.03 K/uL (0.00-0.20); BASOPHILS PERCENT AUTO 0.4 % (0.0-1.0); EOSINOPHILS ABSOLUTE AUTO 0.03 K/uL (0.00-0.45); EOSINOPHILS PERCENT AUTO 0.4 % (0.0-6.0); HEMATOCRIT 46.5 % (42.0-52.0); HEMOGLOBIN 15.4 g/dL (14.0-18.0); IMMATURE GRAN ABSOLUTE AUTO 0.03 K/uL (0.00-0.05); IMMATURE GRAN PERCENT AUTO 0.4 % (0.0-0.4); LYMPHOCYTES ABSOLUTE AUTO 0.89 K/uL (1.00-4.80); LYMPHOCYTES PERCENT AUTO 12.8 % (24.0-44.0); MEAN CORPUSCULAR HEMOGLOBIN 31.6 pg (28.0-32.0); MEAN CORPUSCULAR HGB CONC 33.1 g/dL (32.0-36.0); MEAN CORPUSCULAR VOLUME 95.5 fL (83.0-99.0); MEAN PLATELET VOLUME 9.4 fL (9.4-12.4); MONOCYTES ABSOLUTE AUTO 0.32 K/uL (0.00-0.80); MONOCYTES PERCENT AUTO 4.6 % (0.0-8.0); NEUTROPHILS ABSOLUTE AUTO 5.63 K/uL (1.80-7.70); NEUTROPHILS PERCENT AUTO 81.4 % (41.0-71.0); PLATELET COUNT,PLT 154 K/uL (150-400); RED BLOOD CELL COUNT 4.87 M/uL (4.52-5.90); WHITE BLOOD CELL COUNT,WBC 6.93 K/uL (3.9-11.3)
[2024-07-25 14:37] LABS: INR 1.08 (0.86-1.11)
[2024-07-25 14:41] LABS: A/G RATIO 0.9 (0.9-1.6); ALBUMIN 3.3 g/dL (3.4-5.0); BILIRUBIN TOTAL 0.9 mg/dL (0.2-1.0); CALCIUM 8.7 mg/dL (8.5-10.1); CARBON DIOXIDE,CO2 30.5 mmol/L (21.0-32.0); CREATININE 1.3 mg/dL (0.8-1.3); EST CRCL DRUG DOSING (CG) 38.73 mL/min; POTASSIUM,K 4.4 mmol/L (3.5-5.1); PROTEIN TOTAL,TP 6.8 g/dL (6.4-8.2); TSH ULTRASENSITIVE 1.17 uIU/mL (0.36-3.74)
[2024-07-25] MEDS ORDERED: Acetaminophen 325 MG Tab PO PRN (18:48)
[2024-07-25] MEDS ORDERED: Ondansetron 4 MG/2 ML SDV IVPUSH PRN (18:48)
[2024-07-25] MEDS ORDERED: Polyethylene Glycol 3350 Powder 17 GM Packet PO PRN (18:48)
[2024-07-25] MEDS ORDERED: Docusate Sodium 100 MG Cap PO PRN (18:48)
[2024-07-25] MEDS ORDERED: Ondansetron 4 MG Tab.DIS PO PRN (18:48)
[2024-07-26 05:30] LABS: HEMATOCRIT 41.4 % (42.0-52.0); MEAN CORPUSCULAR HEMOGLOBIN 31.9 pg (28.0-32.0); MEAN CORPUSCULAR HGB CONC 33.8 g/dL (32.0-36.0); MEAN CORPUSCULAR VOLUME 94.3 fL (83.0-99.0); MEAN PLATELET VOLUME 9.9 fL (9.4-12.4); PLATELET COUNT,PLT 153 K/uL (150-400); RED BLOOD CELL COUNT 4.39 M/uL (4.52-5.90)
[2024-07-26 05:57] LABS: HEMOGLOBIN A1C 5.9 %
[2024-07-26 06:30] LABS: BILIRUBIN TOTAL 0.6 mg/dL (0.2-1.0); CALCIUM 8.3 mg/dL (8.5-10.1); CREATININE 1.3 mg/dL (0.8-1.3); EST CRCL DRUG DOSING (CG) 38.73 mL/min; MAGNESIUM 2.1 mg/dL (1.8-2.4); PHOSPHORUS 4.2 mg/dL (2.6-4.7); PROTEIN TOTAL,TP 5.9 g/dL (6.4-8.2)
== END 2024-07-26 17:15 | disposition home or self-care (01) ==
LOC: MW.ED 13:24 → MW.MS 16:38
PROVIDERS: ADMIT Family Medicine; ATTEND Family Medicine
DX: R55 Syncope and collapse (principal); R73.9 Hyperglycemia, unspecified
CPT/HCPCS: 36415; 70450; 71045; 80053; 80061; 82607; 83036; 83690; 83735; 84100; 84443; 84484; 85025; 85027; 85610; 93005; 93246; 93306; 99285; G0378; 99284